=== PATIENT | female | born 1995 | race Caucasian/White ===

== ENCOUNTER 2019-10-29 10:54 | Emergency (ER) | payer MEDICAID, SELFPAY ==
[2019-10-29 11:22] VITALS: BP 110/77; PULSE 94; RESP 17; O2SAT 100; BMI 21.9
[2019-10-29 11:28] VITALS: O2SAT 98
--- NOTE | 2019-10-29 11:48 | ED_ITS ---
HPI - Dental/Oral General: Chief complaint: Dental/Oral Stated complaint: FACE SWELLED UP Time Seen by Provider: 10/29/19 11:22 Source: patient Mode of arrival: ambulatory Limitations: no limitations History of Present Illness: HPI Narrative: pt reports problems with my teeth for a long time but here today for L sided facial swelling that began this morning Onset (ago): hour(s) Duration: constant Severity: moderate Relieving factors: nothing Exacerbating factors: nothing Context: history of dental caries Associated symptoms: Reports no associated symptoms; Denies ear or mastoid pain, fever(s) or painful swallowing Treatment prior to arrival: none Review of Systems Const: Denies: fever, chills, body aches, change in appetite, change in weight, fatigue or malaise Eyes: Denies: change in vision, blurry vision, eye discharge or dry eyes ENMT: Reports: other (L facial swelling; denies dental pain); Denies: throat pain, enlarged tonsils, painful swallowing, swelling of lips/tongue, oral sores/lesions, dental pain, ear pain, nasal discharge, nasal congestion or nasal obstruction Card: Denies: chest pain Resp: Denies: shortness of breath GI: Denies: nausea or vomiting Skin/Breast: Denies: rash Neuro: Denies: headache PFSH ED PFSH: Social History Smoking and tobacco status: current every day smoker Physical Exam Const: COMMON NORMALS: no apparent distress, average body habitus, oriented x3, no limitations, healthy appearing, alert and well nourished HENMT: COMMON NORMALS: normocephalic, head/scalp atraumatic, hearing grossly normal bilaterally, external ears normal, EAC's normal, TM's normal bilaterally, external nose normal, nasal mucous membranes and turbinates normal, moist oral mucous membranes, oropharynx normal and gingiva normal HEAD & SCALP: normocephalic and atraumatic FACE & SINUS: other (swelling noted overlying L maxillary region; no redness/warmth) NOSE: external nose normal and nasal mucous membranes and turbinates normal EXTERNAL EAR: Yes external ears normal EXTERNAL AUDITORY CANAL: EAC's normal TYMPANIC MEMBRANE: TM's normal bilaterally MOUTH: other (overall extremely poor dentition with extensive caries ) Neuro: COMMON NORMALS: oriented x3 SENSORIUM/ORIENTATION: Yes alert Course Vital Signs: Vital signs: Vital Signs Pulse Rate 94 10/29/19 11:22 Respiratory Rate 17 10/29/19 11:22 Blood Pressure 110/77 10/29/19 11:22 Pulse Oximetry 98 10/29/19 11:28 MDM - Dental/Oral MDM Narrative: Medical decision making narrative: no dental abscess present at this time; was given IM clindamycin and will be discharged home with rx for a week; strict recommendations of getting into a dentist ana given; return to ED precautions given Discharge Plan Discharge Patient Disposition: Home, Self-Care Clinical Impression: Dental caries, Dental abscess, Toothache Condition: Stable Prescriptions: New clindamycin HCl 300 mg capsule 300 mg PO Q6H 7 Days Qty: 28 RF: 0 Peridex 0.12 % mouthwash 15 ml BUCCAL BID Qty: 473 RF: 0 Discharge Orders: Discharge Order (Routine); Ordered 10/29/19 Ordered By: Zina Baugh Referrals: Christy Ruiz FNP [Primary Care Provider] - Brandan Aponte MD [Family Provider] - Patient Instructions: Dental Caries (Cavities), Dental Caries (ED), Toothache (ED), Dental Abscess Coding Level of Care Code ED Party Supply Specialist for Sergio Vu
[2019-10-29] MEDS: clindamycin 150 mg/mL SDV 6 mL 600 MG IM (11:51)
[2019-10-29 12:07] VITALS: BP 115/84; PULSE 74; RESP 15; O2SAT 97
== END 2019-10-29 12:08 | disposition home or self-care (01) ==
PROVIDERS: Emergency Provider Physician Assistant; Family Provider Family Medicine; PCP Nurse Practitioner
DX: K02.9 Dental caries, unspecified (principal); K04.7 Periapical abscess without sinus; F17.200 Nicotine dependence, unspecified, uncomplicated
CPT/HCPCS: 96372; 99282; 99283; J3490